=== PATIENT | female | born 1995 | race Asian ===

== ENCOUNTER 2016-11-11 17:11 | Emergency (ER) | payer OTHER ==
[~2016-11-11] VITALS: Ht 165.1 cm; Wt 54.1 kg
[2016-11-11 17:18] VITALS: TEMP 36.6; Ht 165.1 cm; Wt 54.1 kg
[2016-11-11] MEDS ORDERED: ONDANSETRON INJ 2 MG/ML 2 ML VIAL IV STA (17:36)
[2016-11-11] MEDS ORDERED: SODIUM CHLORIDE 0.9% 1000ML 1,000 ML IV STA (17:36)
[2016-11-11 18:12] LABS: URINE APPEARANCE CLEAR (CLEAR); URINE BILIRUBIN NEG (NEG); URINE COLOR DK YELLOW; URINE EPITHELIAL CELL AUTO >30 /lpf (0-5); URINE NITRITE NEG (NEG); URINE PH 5.5 (4.5-7.5); URINE SPECIFIC GRAVITY 1.027 (1.000-1.030); UROBILINOGEN NEG (NEG)
[2016-11-11 18:14] LABS: MANUAL MICROSCOPIC REQUIRED? NO; REVIEW REQ? NO
[2016-11-11 18:17] LABS: MEAN CELL VOLUME 93.3 fL (80-100); MEAN CORPUSCULAR HEMOGLOBIN 32.3 pg (25-34); MEAN CORPUSCULAR HGB CONC 34.7 g/dl (32-36); PLATELET COUNT 236 K/uL (130-400); RED BLOOD COUNT 5.04 M/uL (4.2-5.4); WHITE BLOOD COUNT 6.02 K/uL (4.8-10.8)
[2016-11-11 18:28] LABS: ALT/SGPT 33 U/L (12-78); BLOOD UREA NITROGEN 16 mg/dl (7-18); BUN/CREATININE RATIO 20.1 (10-20); CALCIUM 9.8 mg/dl (8.5-10.1); CARBON DIOXIDE 28 mmol/L (21-32); CHLORIDE 102 mmol/L (98-107); CREATININE 0.81 mg/dl (0.60-1.20); GLUCOSE 78 mg/dl (70-99); POTASSIUM 3.9 mmol/L (3.5-5.1); SODIUM 138 mmol/L (136-145)
[2016-11-11 18:31] LABS: ALKALINE PHOSPHATASE 89 U/L (45-117); AST/SGOT 26 U/L (15-37)
[2016-11-11 18:32] LABS: BASO % 1.2 %; BASO ABS # 0.07 K/uL (0-0.2); COMPLETE YES; EOS % 1.2 %; LYMPH % 33.6 %; LYMPH ABS # 2.02 K/uL (1.2-3.4); MONO % 9.1 %; NEUT % 54.9 %
[2016-11-11] MEDS ORDERED: ONDA4TAB10 SL (18:49)
[2016-11-11 19:15] VITALS: BP 112/70; PULSE 84; O2SAT 97
--- NOTE | 2016-11-11 20:09 | EMERGENCY ROOM VISIT NOTE ---
History Report prepared by Jonathon: Mae Calixto Under the Supervision of: Dr. Bal Dinero M.D. First contact with patient: 17:24 Chief Complaint: GI ASSESSMENT Stated Complaint: MIGRAINE,VOMITING History of Present Illness The patient is a 21 year old female who presents to the Emergency Room with complaints of persistent abdominal pain starting 2 days ago. The patient had an intermittent fever throughout last week. She did not check her temperature, but she felt cold and weak. She woke up in the morning 2 days ago with a headache and abdominal pain. She usually does not have headaches. She thought that she might have a cold or the flu. Her abdominal pain does not change with eating. She took some ibuprofen and felt better. She went to [facility] that day where she had blood work, strep test, and mono test which were negative. She was told that her WBC was elevated and she might be fighting off an infection. She was not given any medications. Since then, she has started feeling nauseous and vomiting. She vomits every time she tries to eat or drink. She has vomited 4 times in the past 2 days. She has not had a fever for the past 2 days. She no longer has a headache. She denies any sore throat, rhinorrhea, cough, urinary symptoms, body aches, rash, or bloody stools. She notes that she had diarrhea since September. It stopped 1 week ago, but she has states she has not been eating very much during that time.. Her stools were watery and loose and started after she returned back to [place]. She was in [place] over the summer. She denies any hepatitis A exposure and spent most of her time in the city. She has had strep in the past. She denies any tick bites, hiking, camping , or recent antibiotic use. Her roommate did recently have a cold. She denies any chance of . Her menstrual periods have been normal. She denies any previous abdominal surgeries. She does have a history of frequent enteritis and gastritis when she was younger. She has not had any problems for the past 1-2 years. She has not followed with GI before. Source of History: patient Onset: 2 days ago Position: abdomen Quality: other (pain) Timing: other (persistent) Associated Symptoms: + fevers (resolved), + headache (resolved), + nausea, + vomiting, + diarrhea (resolved), No sorethroat, No cough, No hematochezia, No urinary symptoms, No rash Note: Pt denies rhinorrhea, body aches. Review of Systems See HPI for pertinent positives & negatives. A total of 10 systems reviewed and were otherwise negative. Past Medical & Surgical Medical Problems: (1) Enteritis (2) Gastritis Family History No pertinent family history stated. Social History Smoking Status: Never Smoker Housing Status: lives with roommate Occupation Status: [employer] student Current/Historical Medications Scheduled Ondasetron Odt (Zofran Odt), 4 MG SL Q6H Allergies Coded Allergies: No Known Allergies (Unverified , 11/11/16) Physical Exam Vital Signs Date Time Temp Pulse Resp B/P (MAP) Pulse Ox O2 Delivery O2 Flow Rate FiO2 11/11/16 19:15 84 18 112/70 97 11/11/16 17:18 36.6 107 18 127/90 97 Room Air Physical Exam Constitutional: Vital signs reviewed. Eyes: Pupils are equal round reactive to light. Conjunctiva are noninjected. ENT: Pharynx is clear without erythema or exudate. Mucous membranes are moist. Neck supple without meningeal signs. Respiratory: Clear to auscultation bilaterally. Breath sounds are equal bilaterally. Cardiovascular: Regular rate and rhythm. No rubs or gallops. GI: Soft, nondistended. Mild epigastric tenderness without guarding. Bowel sounds are present. Musculoskeletal: No peripheral edema. No lower extremity tenderness. Integumentary: No cyanosis. Neurological: The patient is awake and alert. No focal deficits. Psychiatric: Normal affect. Medical Decision & Procedures Laboratory Results 11/11/16 17:50 Red Blood Count 5.04, Mean Corpuscular Volume 93.3, Mean Corpuscular Hemoglobin 32.3, Mean Corpuscular Hemoglobin Concent 34.7, Mean Platelet Volume 10.0, Neutrophils (%) (Auto) 54.9, Lymphocytes (%) (Auto) 33.6, Monocytes (%) (Auto) 9.1, Eosinophils (%) (Auto) 1.2, Basophils (%) (Auto) 1.2, Neutrophils # (Auto) 3.31, Lymphocytes # (Auto) 2.02, Monocytes # (Auto) 0.55, Eosinophils # (Auto) 0.07, Basophils # (Auto) 0.07 11/11/16 17:50 Test 11/11/16 17:50 White Blood Count 6.02 K/uL (4.8-10.8) Red Blood Count 5.04 M/uL (4.2-5.4) Hemoglobin 16.3 g/dL (12.0-16.0) Hematocrit 47.0 % (37-47) Mean Corpuscular Volume 93.3 fL (80-100) Mean Corpuscular Hemoglobin 32.3 pg (25-34) Mean Corpuscular Hemoglobin Concent 34.7 g/dl (32-36) Platelet Count 236 K/uL (130-400) Mean Platelet Volume 10.0 fL (7.4-10.4) Neutrophils (%) (Auto) 54.9 % Lymphocytes (%) (Auto) 33.6 % Monocytes (%) (Auto) 9.1 % Eosinophils (%) (Auto) 1.2 % Basophils (%) (Auto) 1.2 % Neutrophils # (Auto) 3.31 K/uL (1.4-6.5) Lymphocytes # (Auto) 2.02 K/uL (1.2-3.4) Monocytes # (Auto) 0.55 K/uL (0.11-0.59) Eosinophils # (Auto) 0.07 K/uL (0-0.5) Basophils # (Auto) 0.07 K/uL (0-0.2) RDW Standard Deviation 41.6 fL (36.4-46.3) RDW Coefficient of Variation 12.4 % (11.5-14.5) Immature Granulocyte % (Auto) 0.0 % Immature Granulocyte # (Auto) 0.00 K/uL (0.00-0.02) Urine Color DK YELLOW Urine Appearance CLEAR (CLEAR) Urine pH 5.5 (4.5-7.5) Urine Specific [place] 1.027 (1.000-1.030) Urine Protein NEG (NEG) Urine Glucose (UA) NEG (NEG) Urine Ketones 2+ (NEG) Urine Occult Blood NEG (NEG) Urine Nitrite NEG (NEG) Urine Bilirubin NEG (NEG) Urine Urobilinogen NEG (NEG) Urine Leukocyte Esterase TRACE (NEG) Urine WBC (Auto) 5-10 /hpf (0-5) Urine RBC (Auto) 0-4 /hpf (0-4) Urine Hyaline Casts (Auto) 5-10 /lpf (0-5) Urine Epithelial Cells (Auto) >30 /lpf (0-5) Urine Bacteria (Auto) NEG (NEG) Urine Test NEG (NEG) Anion Gap 8.0 mmol/L (3-11) Est Creatinine Clear Calc Drug Dose 93.8 ml/min Estimated GFR () 120.3 Estimated GFR (Non- 103.8 BUN/Creatinine Ratio 20.1 (10-20) Calcium Level 9.8 mg/dl (8.5-10.1) Total Bilirubin 0.4 mg/dl (0.2-1) Direct Bilirubin < 0.1 mg/dl (0-0.2) Aspartate Amino Transf (AST/SGOT) 26 U/L (15-37) Alanine Aminotransferase (ALT/SGPT) 33 U/L (12-78) Alkaline Phosphatase 89 U/L (45-117) Total Protein 8.6 gm/dl (6.4-8.2) Albumin 4.4 gm/dl (3.4-5.0) Lipase 215 U/L (73-393) Laboratory results as reviewed by me. Medications Administered Medications (Trade) Dose Ordered Sig/Enrique Route Start Time Stop Time Status Last Admin Dose Admin Ondansetron HCl (Zofran Inj) 4 mg NOW STAT IV 11/11/16 17:36 11/11/16 17:37 DC 11/11/16 17:36 4 MG Sodium Chloride 1,000 ml @ 999 mls/hr Q1H1M STAT IV 11/11/16 17:36 11/11/16 18:36 DC 11/11/16 17:36 999 MLS/HR ED Course 1726: The patient was evaluated in room C5. A complete history and physical exam was performed. 1736: NSS 1000 ml @ 999 mls/hr IV, Zofran Inj 4 mg IV. 1846: I reevaluated the patient. She is feeling better. She denies having any urinary symptoms. I discussed her test results with her. She verbalized agreement of the treatment plan. She was discharged home. Medical Decision this is a 21-year-old female presents with abdominal pain.differential diagnosis includes gastritis, pancreatitis, peptic ulcer disease, cholelithiasis , irritable bowel syndrome, inflammatory bowel disease, food intolerance. I did perform a limited focused review of portions of the patient's old chart on the electronic medical record. The patient has had no recent pertinent visits to this hospital. I did evaluate the patient as noted above. The patient is presenting with several days of abdominal pain and vomiting. She has some mild tenderness in the epigastric region. She has had diarrhea for over a month. IV access was established. I did treat patient with Zofran and normal saline IV. I did order and personally review the patient's urinalysis as described above. Findings are equivocal. She denies having any urinary symptoms. A urine culture was sent. I did order and review the patient's blood work as noted in the electronic medical record. Her white blood cell count is not elevated. LFTs and lipase are unremarkable. I did reassess patient. She is feeling better at this time. I did recommend she follow with [facility] and/or Dr. Rushing of gastroenterology. She was discharged with a prescription for Zofran. Medication Reconcilliation Current Medication List: was personally reviewed by me Blood Pressure Screening Patient's blood pressure: Elevated blood pressure Blood pressure disposition: Referred to PCP Impression Primary Impression: Upper abdominal pain Additional Impression: Vomiting Scribe Attestation The scribe's documentation has been prepared under my direct and personally reviewed by me in its entirety. I confirm that the note above accurately reflects all work, treatment, procedures, and medical decision making performed by me. Departure Information Dispostion Home / Self-Care Prescriptions Ondasetron Odt (ZOFRAN ODT) 4 Mg Tab 4 MG SL Q6H for Nausea, #10 TAB Prov: Bal Dinero M.D. 11/11/16 Referrals Maldonado Rushing, DO [facility] Forms HOME CARE DOCUMENTATION FORM, IMPORTANT VISIT INFORMATION Patient Instructions ED Abdominal Pain Unkn Cause, My [facility] Additional Instructions You have been examined and treated today on an emergency basis only. This is not a substitute for, or an effort to provide, complete comprehensive medical care. It is impossible to recognize and treat all injuries or illnesses in a single emergency department visit. It is therefore important that you follow up closely with [facility] and Dr. Rushing of gastroenterology. Call as soon as possible for an appointment. Return for worsening symptoms or if you develop fever, rectal bleeding or any other concerning symptoms. Problem Qualifiers Additional Impression: Vomiting Vomiting type: unspecified Vomiting Intractability: non-intractable Nausea presence: with nausea Qualified Codes: R11.2 - Nausea with vomiting, unspecified
== END 2016-11-11 19:16 | disposition home or self-care (01) ==
LOC: C.EDB 17:13 → C.EDC 19:16
DX: R10.10 Upper abdominal pain, unspecified (principal); R11.2 Nausea with vomiting, unspecified